=== PATIENT | female | born 1940 | race Caucasian/White ===

== ENCOUNTER 2022-01-21 15:19 | Inpatient (IN) ==
[2022-01-21] MEDS: SODIUM CHLORIDE 0.9% 1,000 ML IV STA ×2 (15:22→16:50)
[2022-01-21 15:54] LABS: Basophils # 0.1 10*3/uL (0.0-0.2); Basophils % 0.5 % (0.0-0.8); Eosinophils # 0.1 10*3/uL (0.0-0.87); Eosinophils % 1.2 % (0.00-10.9); Hematocrit 42.8 VOL% (35.7-47.0); Hemoglobin 13.9 GM/DL (12.0-16.0); Immature Granulocytes % 0.4 %; Immature Granulocytes Absolute 0.04 #; Lymphocytes # 1.6 10*3/uL (1.4-4.0); Lymphocytes % 15.9 % (21.3-54.2); Mean Corpuscular HGB Conc 32.5 GM/DL (32-36); Mean Corpuscular Volume 90.7 FL (87-102); Mean Platelet Volume 11.2 FL (9.6-12.0); Monocytes % 10.3 % (1.7-12.7); Neutrophils % 71.7 % (38.7-73.9); Platelet Count 148 T/CUMM (130-400); Red Blood Count 4.72 MC/CUMM (3.8-5.5)
[2022-01-21 16:20] LABS: Alanine Aminotransferase 19 U/L (13-56); Albumin 3.6 G/DL (3.4-5.0); Alkaline Phosphatase 71 U/L (45-117); Aspartate Amino Transferase 16 U/L (0-37); Blood Urea Nitrogen 20 MG/DL (7-18); Calcium 9.1 MG/DL (8.5-10.1); Carbon Dioxide 24 MMOL/L (21-32); Chloride 109 MMOL/L (98-107); Glucose 203 MG/DL (74-106); Osmolality,Calculated 285.5 MOS/KG (273-304); Potassium 4.7 MMOL/L (3.5-5.1); Sodium 139 MMOL/L (136-145); Thyroid Stimulating Hormone 0.623 uIU/ml (0.358-3.74); Total Protein 7.4 G/DL (6.4-8.2)
[2022-01-21 16:30] LABS: Bacteria,Urine Occasional /HPF (Few); Bilirubin,Urine Negative (Negative); Blood, Urine Negative (Negative); Glucose,Urine (UA) Negative (Negative); Ketones,Urine Negative (Negative); Nitrite,Urine Negative (Negative); Protein,Urine Negative (Negative); RBC,Urine <1 /HPF (0-4); Squamous Epithelial Cell,Urine Occasional /HPF (0-10); Urine Appearance Clear (Clear); Urine Color Yellow (Yellow); Urine Urobilinogen 0.2 eU/dL (<2.0)
[2022-01-21] MEDS ORDERED: SODIUM CHLORIDE 0.9% 2,000 ML IV ONE (16:39)
[2022-01-21 16:57] LABS: Barbiturates Screen,Urine Negative (Negative); Benzodiazepines Screen,Urine Negative (Negative); Cannabinoid Screen,Urine Negative (Negative); Opiate Screen,Urine Negative (Negative); Phencyclidine Screen,Urine Negative (Negative)
[2022-01-21] MEDS ORDERED: GLUCAGON 1 MG VIAL IM PRN (17:17)
[2022-01-21] MEDS ORDERED: ACETAMINOPHEN 325 MG TABLET PO PRN (17:20)
[2022-01-21] MEDS ORDERED: CALCIUM CARBONATE CHEW 500 MG TABLET PO PRN (17:20)
[2022-01-21] MEDS ORDERED: ONDANSETRON 4 MG/2 ML VIAL IV PRN (17:20)
[2022-01-21] MEDS ORDERED: DOCUSATE SODIUM 100 MG CAPSULE PO PRN (17:20)
[2022-01-21] MEDS ORDERED: SIMETHICONE CHEW 125 MG TABLET PO PRN (17:20)
[2022-01-21] MEDS ORDERED: BISACODYL 5 MG TABLET PO PRN (17:20)
[2022-01-21] MEDS ORDERED: DEXTROSE 10% 250 ML BAG IV PRN (17:28)
[2022-01-21 17:40] LABS: Platelet Estimate Adequate
[2022-01-21] MEDS: SODIUM CHLORIDE 0.9% 1,000 ML IV SCH (20:23)
[2022-01-21] MEDS: INSULIN LISPRO 100 UNIT/ML SUBCUT SCH (21:43)
[2022-01-21] MEDS: ENOXAPARIN 40 MG/0.4 ML SYRINGE SUBCUT SCH (22:06)
[2022-01-22 05:43] LABS: Basophils # 0.1 10*3/uL (0.0-0.2); Basophils % 0.6 % (0.0-0.8); Eosinophils # 0.2 10*3/uL (0.0-0.87); Eosinophils % 1.4 % (0.00-10.9); Hematocrit 32.4 VOL% (35.7-47.0); Hemoglobin 10.2 GM/DL (12.0-16.0); Immature Granulocytes % 0.4 %; Immature Granulocytes Absolute 0.06 #; Lymphocytes # 3.5 10*3/uL (1.4-4.0); Lymphocytes % 25.4 % (21.3-54.2); Mean Corpuscular HGB Conc 31.5 GM/DL (32-36); Mean Corpuscular Volume 92.8 FL (87-102); Mean Platelet Volume 11.5 FL (9.6-12.0); Monocytes # 1.8 10*3/uL (0.11-0.8); Monocytes % 13.1 % (1.7-12.7); Neutrophils % 59.1 % (38.7-73.9); Platelet Count 203 T/CUMM (130-400); Red Blood Count 3.49 MC/CUMM (3.8-5.5); Red Cell Distribution Width 15.1 % (9.3-17.3); White Blood Count 13.7 T/CUMM (4-12)
[2022-01-22 06:01] LABS: Osmolality,Calculated 292.4 MOS/KG (273-304); Potassium 3.4 MMOL/L (3.5-5.1)
[2022-01-22 06:11] LABS: Risk Ratio 2.5; VLDL Cholesterol 14.4 MG/DL
[2022-01-22] MEDS: cefTRIAXone 1,000 MG in SODIUM CHLORIDE 0.9% 100 ML IV SCH (09:30)
[2022-01-22] MEDS: PANTOPRAZOLE 40 MG TABLET PO SCH (09:30)
[2022-01-22] MEDS ORDERED: AZITHROMYCIN INJ 500 MG in SODIUM CHLORIDE 0.9% 250 ML IV ONE (09:37)
[2022-01-22] MEDS ORDERED: POTASSIUM CHLORIDE 20 MEQ TABLET PO ONE (10:04)
[2022-01-22] MEDS: INSULIN LISPRO 100 UNIT/ML SUBCUT SCH ×4 (11:12→20:56)
[2022-01-22] MEDS: SODIUM CHLORIDE 0.9% 1,000 ML IV SCH (20:57)
[2022-01-22] MEDS ORDERED: ASPIRIN EC 81 MG TABLET PO SCH (21:00)
[2022-01-22] MEDS ORDERED: ROSUVASTATIN 10 MG TABLET PO SCH (21:00)
[2022-01-22] MEDS ORDERED: lisinopriL 20 MG TABLET PO SCH (21:00)
[2022-01-22] MEDS: ENOXAPARIN 40 MG/0.4 ML SYRINGE SUBCUT SCH (21:02)
[2022-01-23] MEDS ORDERED: LEVOTHYROXINE 50 MCG TABLET PO SCH (06:30)
[2022-01-23 06:47] LABS: Basophils # 0.1 10*3/uL (0.0-0.2); Basophils % 0.8 % (0.0-0.8); Eosinophils # 0.3 10*3/uL (0.0-0.87); Eosinophils % 3.1 % (0.00-10.9); Hematocrit 34.6 VOL% (35.7-47.0); Immature Granulocytes % 0.4 %; Immature Granulocytes Absolute 0.04 #; Lymphocytes % 30.3 % (21.3-54.2); Mean Corpuscular HGB Conc 31.8 GM/DL (32-36); Mean Platelet Volume 11.4 FL (9.6-12.0); Monocytes # 1.3 10*3/uL (0.11-0.8); Monocytes % 12.9 % (1.7-12.7); Neutrophils % 52.5 % (38.7-73.9); Platelet Count 215 T/CUMM (130-400); Red Blood Count 3.72 MC/CUMM (3.8-5.5); Red Cell Distribution Width 15.5 % (9.3-17.3); White Blood Count 9.8 T/CUMM (4-12)
[2022-01-23 07:00] LABS: Osmolality,Calculated 278.4 MOS/KG (273-304)
[2022-01-23] MEDS ORDERED: AZITHROMYCIN 250 MG TABLET PO SCH (09:00)
[2022-01-23] MEDS: INSULIN LISPRO 100 UNIT/ML SUBCUT SCH (09:41)
[2022-01-23] MEDS: PANTOPRAZOLE 40 MG TABLET PO SCH (09:50)
[2022-01-23] MEDS: cefTRIAXone 1,000 MG in SODIUM CHLORIDE 0.9% 100 ML IV SCH (09:51)
[2022-01-23 12:10] VITALS: BP 150/68
== END 2022-01-23 13:06 | disposition home or self-care (01) | DRG 922 ==
LOC: N.ED 15:19 → N.EDINP 17:17 → N.TELES 22:47
PROVIDERS: ADMIT Internal Medicine; ATTEND Internal Medicine